=== PATIENT | male | born 1985 | race Caucasian/White ===

== ENCOUNTER 2018-09-20 15:02 | Emergency (ER) | payer SELFPAY ==
[2018-09-20] MEDS ORDERED: Proparacaine 0.5% Opth 15 ML BOT ONE (16:21)
[2018-09-20] MEDS ORDERED: Fluorescein Opthalmic Strip ONE (16:22)
== END 2018-09-20 16:44 | disposition home or self-care (01) ==
LOC: ERS 15:02
DX: T15.02XA Foreign body in cornea, left eye, initial encounter (principal); H10.9 Unspecified conjunctivitis; F17.210 Nicotine dependence, cigarettes, uncomplicated
CPT/HCPCS: 65222

== ENCOUNTER 2019-03-15 08:16 | Emergency (ER) | payer SELFPAY | END 2019-03-15 09:20 | disposition home or self-care (01) | LOC: ERS 08:16 | DX: L03.113 Cellulitis of right upper limb (principal); L85.3 Xerosis cutis; F17.210 Nicotine dependence, cigarettes, uncomplicated | CPT/HCPCS: 99283 ==

== ENCOUNTER 2019-10-10 15:14 | Emergency (ER) | payer OTHER, SELFPAY | END 2019-10-10 16:15 | disposition home or self-care (01) | LOC: ERS 15:14 | DX: R05 Cough (principal); R09.81 Nasal congestion | CPT/HCPCS: 99282 ==

== ENCOUNTER 2022-01-26 11:48 | Emergency (ER) | payer SELFPAY ==
[~2022-01-26 11:48] MED LIST: Iopamidol-370 76% 500 ML 1 ML ONE
[2022-01-26 12:47] LABS: #Lymphocytes 1.4 thou/uL (1.20-3.40); #Monocytes 0.7 thou/uL (0.11-0.59); %Basophils 0.1 % (0.0-1.0); %Eosinophils 0.2 % (0.0-10.0); %Lymphocytes 17.6 % (21.0-51.0); %Monocytes 8.6 % (0.0-10.0); %Neutrophils 73.5 % (42.0-75.0); Hemoglobin 14.9 g/dL (14.0-18.0); Mean Corpuscular HGB CONC 32.9 g/dL (32.0-36.0); Mean Corpuscular Hemoglobin 31.4 pg (27.0-31.0); Mean Corpuscular Volume 95.4 fL (78.0-98.0); Mean Platelet Volume 8.6 fL (7.4-10.4); Platelet Count 253 thou/uL (130-400); Red Blood Cell (RBC) Count 4.74 mill/uL (4.70-6.10); White Blood Cell (WBC) Count 8.2 thou/uL (4.8-10.8)
[2022-01-26 13:13] LABS: ALT (SGPT) 46 U/L (8-55); AST (SGOT) 22 U/L (5-34); Albumin 4.4 g/dL (3.5-5.0); Alkaline Phosphatase 77 U/L (40-110); Anion Gap 14 mmol/L (10-20); BUN (Urea Nitrogen) 8 mg/dL (8.9-20.6); Bilirubin, Total 0.4 mg/dL (0.2-1.2); Calc. Creatinine Clearance 0 mL/min (70-130); Calcium 9.5 mg/dL (7.8-10.44); Carbon Dioxide 26 mmol/L (22-29); Chloride 103 mmol/L (98-107); Estimated GFR 118; Globulin 3.1 g/dL (2.4-3.5); Glucose 112 mg/dL (70-105); Lipase 11 U/L (8-78); Potassium 3.8 mmol/L (3.5-5.1); Protein, Total 7.5 g/dL (6.0-8.3); Sodium 139 mmol/L (136-145)
[2022-01-26] MEDS ORDERED: Famotidine/PF 20 mg/2ml Vial ONE (13:45)
[2022-01-26] MEDS ORDERED: Ketorolac Tromethamine 30 MG/ML VIAL ONE (13:45)
[2022-01-26] MEDS ORDERED: Ondansetron PF 4 MG/2 ML Vial ONE (13:45)
[2022-01-26 14:31] LABS: Bilirubin Negative (Negative); Blood, Urine Negative (Negative); Clarity Clear (Clear); Glucose, Urine (Dipstick) Normal (Negative); Ketone, Urine Negative (Negative); Leukocyte Negative Leu/uL (Negative); Nitrite Negative (Negative); Protein, Urine (Dipstick) Negative (Neg-Trace); Specific Gravity, Urine 1.046 (1.002-1.036); Urobilinogen Normal mg/dL (Less than 2); pH, Urine 7.5 (5.0-9.0)
[2022-01-26] MEDS ORDERED: Dicyclomine 20 MG/2 ML VIAL ONE (14:52)
== END 2022-01-26 15:15 | disposition home or self-care (01) ==
LOC: ERS 11:48
DX: R10.84 Generalized abdominal pain (principal); R11.2 Nausea with vomiting, unspecified; I10 Essential (primary) hypertension; F17.210 Nicotine dependence, cigarettes, uncomplicated
CPT/HCPCS: 36415; 74177; 80053; 81003; 83690; 85025; 93005; 96361; 96372; 96374; 96375; J1885; J2405; Q9967; S0028